=== PATIENT | female | born 1990 | race Caucasian/White ===

== ENCOUNTER 2018-02-23 11:01 | Emergency (ER) | payer MEDICAID ==
[~2018-02-23] VITALS: Ht 157.5 cm; Wt 74.8 kg
[2018-02-23 11:23] VITALS: BP 122/78
[2018-02-23] MEDS ORDERED: KETOROLAC TROMETH 60MG/2ML VIAL IM ONE (11:30)
== END 2018-02-23 12:13 | disposition home or self-care (01) ==
LOC: ER 11:01
DX: S30.0XXA Contusion of lower back and pelvis, initial encounter (principal); W01.0XXA Fall on same level from slipping, tripping and stumbling without subsequent striking against object, initial encounter; Y93.89 Activity, other specified; Y99.8 Other external cause status; Y92.89 Other specified places as the place of occurrence of the external cause
CPT/HCPCS: 72100; 81002; 81025; J1885